=== PATIENT | male | born 1990 | race African-American/Black ===

== ENCOUNTER 2017-12-11 09:32 | Emergency (ER) | payer MEDICAID ==
[~2017-12-11] VITALS: Ht 182.9 cm; Wt 76.0 kg
[2017-12-11] MEDS ORDERED: OLANZAPINE 10MG TABLET PO STA (10:12)
[2017-12-11 10:36] LABS: CLARITY URINE CLEAR (CLEAR); COLOR URINE YELLOW (YELLOW); KETONES URINE TRACE (NEGATIVE); LEUKOCYTE ESTERASE URINE NEGATIVE (NEGATIVE); NITRITE URINE NEGATIVE (NEGATIVE); OCCULT BLOOD URINE NEGATIVE (NEGATIVE); PROTEIN URINE NEGATIVE (NEGATIVE); SPECIFIC GRAVITY URINE 1.023 (1.005-1.030)
[2017-12-11 11:16] LABS: BASOPHILS % 0.7 % (0.0-2.0); EOSINOPHILS % 0.5 % (0.0-5.0); HEMATOCRIT. 42.5 % (42.0-52.0); HEMOGLOBIN. 14.2 g/dL (14.0-18.0); LYMPHOCYTES % 24.6 % (20.0-50.0); MEAN CORPUSCULAR HEMOGLOBIN 30.3 pg (28.0-32.0); MEAN CORPUSCULAR VOLUME 90.6 fL (80.0-94.0); MEAN PLATELET VOLUME 8.2 fl (7.4-10.4); MONOCYTES % 8.9 % (2.0-8.0); NEUTROPHILS % 65.3 % (40.0-76.0); PLATELET 297 x1000/uL (130-400); RED BLOOD CELL COUNT 4.69 mill/uL (4.7-6.1)
[2017-12-11 11:21] LABS: *AMPHETAMINES SCREEN URINE NEGATIVE (NEGATIVE); *BARBITURATES SCREEN URINE NEGATIVE (NEGATIVE); *BENZODIAZEPINES SCREEN URINE NEGATIVE (NEGATIVE)
[2017-12-11 11:21] LABS: CHLORIDE 103 mEq/L (98-107)
[2017-12-11 11:22] LABS: *COCAINE SCREEN URINE NEGATIVE (NEGATIVE); CANNABINOID URINE SCREEN PRESUMTIVE POSITIVE (NEGATIVE); METHADONE URINE SCREEN NEGATIVE (NEGATIVE); OPIATES URINE SCREEN NEGATIVE (NEGATIVE); PHENCYCLIDINE URINE SCREEN NEGATIVE (NEGATIVE)
[2017-12-11 11:25] LABS: ETHANOL BLOOD < 10 mg/dL
[2017-12-11 11:34] LABS: VALPROIC ACID < 3.0 ug/mL (50-100)
[2017-12-12] MEDS ORDERED: OLANZAPINE 10MG TABLET ODT PO ONE (12:45)
[2017-12-12 18:08] VITALS: BP 105/62
== END 2017-12-12 18:12 ==
LOC: ER 09:32
DX: F23 Brief psychotic disorder (principal); F32.9 Major depressive disorder, single episode, unspecified; R45.851 Suicidal ideations
CPT/HCPCS: 36415; 80053; 80165; 80305; 80307; 80329; 81003; 85025; 99285; G0482